=== PATIENT | male | born 2000 | race African-American/Black ===

== ENCOUNTER 2020-05-22 19:50 | Emergency (ER) | payer OTHER | END 2020-05-22 21:00 | disposition home or self-care (01) | LOC: M ED 19:50 | DX: M25.561 Pain in right knee (principal); M25.562 Pain in left knee; F17.200 Nicotine dependence, unspecified, uncomplicated ==

== ENCOUNTER 2020-10-28 12:49 | Emergency (ER) | payer OTHER ==
[~2020-10-28] VITALS: Ht 188 cm; Wt 86.4 kg
[2020-10-28 13:43] VITALS: BP 138/63
--- NOTE | 2020-10-28 14:13 | REP ---
INDICATION: fall heard snap, swelling, unable to bear weight COMPARISON: None. TECHNIQUE: AP, lateral, bilateral oblique and sunrise views. FINDINGS: The osseous structures and joint spaces are intact and normal. There is no evidence for acute fracture or dislocation. No joint effusion is appreciated. Surrounding soft tissues are unremarkable. No subcutaneous emphysema or radiodense foreign body. IMPRESSION: No acute fracture or dislocation. <Electronically signed by Zachary Lyons > 10/28/20 [id number]
== END 2020-10-28 14:44 | disposition home or self-care (01) ==
LOC: M ED 12:49
DX: M25.562 Pain in left knee (principal)